=== PATIENT | male | born 1995 | race Two or more races ===

== ENCOUNTER 2020-04-21 08:36 | Outpatient (CLI) | payer OTHER | END 2020-04-21 08:41 | disposition home or self-care (01) | LOC: RAD 08:36 | PROVIDERS: ATTEND Orthopaedic Surgery | DX: S82.391A Other fracture of lower end of right tibia, initial encounter for closed fracture (principal) ==

== ENCOUNTER 2020-05-19 08:45 | Outpatient (CLI) | payer OTHER | END 2020-05-19 08:51 | disposition home or self-care (01) | LOC: RAD 08:45 | PROVIDERS: ATTEND Orthopaedic Surgery | DX: S82.391D Other fracture of lower end of right tibia, subsequent encounter for closed fracture with routine healing (principal) ==